=== PATIENT | female | born 1995 | race African-American/Black ===

== ENCOUNTER → 2020-12-15 14:50 | Outpatient (CLI) | payer BC, SELFPAY ==
[2020-12-15 15:29] LABS: Absolute Lymphocyte Count 1.94 X10^3/uL (0.83-4.51); Absolute Neutrophil Count 6.4 X10^3/uL (2.0-7.7); Basophil# 0.02 X10^3/uL; Basophil% 0.2 % (0-1); Eosinophil# 0.04 X10^3/uL; Eosinophils% 0.4 % (0-5); Hematocrit 34.3 % (37-47); Hemoglobin 11.4 g/dL (12.0-15.0); Lymphocyte # 1.94 X10^3/ul (0.83-4.51); Lymphocyte % 21.6 % (19-41); Mean Corp Hgb Conc 33.2 g/dL (32-36); Mean Corpuscular Hgb 29.4 pg (27.0-32.0); Mean Corpuscular Volume 88.4 fL (81-99); Mean Platelet Vol. 9.4 fl (6.2-12.0); Monocyte# 0.59 X10^3/uL; Monocyte% 6.6 % (0-10); NRBC Flagged by Analyzer 0 % (0-5); Neutrophil # 6.35 X10^3/uL (2.7-7.7); Neutrophil % 70.9 % (47-70); Platelet Count 282 K/mm3 (150-450); RBC Distribution Width CV 12.4 % (11.6-14.6); RBC Distribution Width SD 39.9 fl (35.1-43.9); Red Blood Count 3.88 M/mm3 (4.2-5.4)
[2020-12-15 15:58] LABS: Thyroid Stim Hormone (TSH) 0.14 uIU/mL (0.358-3.74)
[2020-12-15 16:17] LABS: Amphetamine Urine VISTA NEGATIVE (<1000 ng/mL); Barbiturate Urine VISTA NEGATIVE (< 200 ng/mL); Benzodiazepine Urine VISTA NEGATIVE (< 200 ng/mL); Cocaine Urine VISTA NEGATIVE (< 300 ng/mL); Ecstacy Urine VISTA NEGATIVE (< 500 ng/mL); Methadone Urine VISTA NEGATIVE (< 300 ng/mL); PCP Urine VISTA NEGATIVE (< 25 ng/mL); THC Urine VISTA NEGATIVE (< 50 ng/mL); Vista UDS pH Range 5
[2020-12-16 10:05] LABS: HIV - WCH Non-Reactive (Nonreactive); Hepatitis B Surface Antigen Non-Reactive (Nonreactive); Hepatitis C Antibody Non-Reactive (Nonreactive); Rubella IgG Reactive (Nonreactive); Syphilis Antibodies Non-reactive
[2020-12-18 03:06] LABS: Chlamydia By Nucleic Acid AMP Negative (Negative)
[2020-12-18 07:20] LABS: Gonococcus By Nucleic Acid AMP Negative (Negative)
== END ==
PROVIDERS: Referring Provider Obstetrics & Gynecology; Visit Provider Obstetrics & Gynecology
DX: O09.90 Supervision of high risk pregnancy, unspecified, unspecified trimester (principal); C73 Malignant neoplasm of thyroid gland; Z3A.00 Weeks of gestation of pregnancy not specified
CPT/HCPCS: 36415; 80307; 84443; 85025; 86703; 86762; 86780; 86803; 86850; 86900; 86901; 87077; 87086; 87186; 87340; 87491; 87591

== ENCOUNTER → 2020-12-22 16:36 | Outpatient (CLI) | payer BC, SELFPAY ==
[2020-12-22 17:59] LABS: Thyroid Stim Hormone (TSH) 0.28 uIU/mL (0.358-3.74)
== END ==
PROVIDERS: PCP Internal Medicine; Referring Provider Internal Medicine; Visit Provider Internal Medicine
DX: E03.9 Hypothyroidism, unspecified (principal)
CPT/HCPCS: 36415; 84443

== ENCOUNTER → 2020-12-31 18:28 | Outpatient (CLI) | payer BC, SELFPAY ==
--- NOTE | 2020-12-31 18:30 | US_ITS ---
STUDY: THYROID ULTRASOUND REASON FOR EXAM: Female, 25 years old. HX CA- s/p THYROIDECTOMY, HX BILATERAL LYMPH NODES TECHNIQUE: Ultrasound evaluation of the thyroid was performed with real-time and static snyder-scale imaging. COMPARISON: None. FINDINGS: Status post total thyroidectomy with no residual thyroid tissue.. The regional lymph nodes are normal. US/Thyroid IMPRESSION: Normal ultrasound examination of the neck after total thyroidectomy. Electronically Signed: Jaskaran López MD at 6:32 EDT Tel , Service support ,
== END ==
LOC: US 18:29
PROVIDERS: PCP Internal Medicine; Visit Provider Internal Medicine Endocrinology, Diabetes & Metabolism
DX: C73 Malignant neoplasm of thyroid gland (principal); E03.9 Hypothyroidism, unspecified
CPT/HCPCS: 76536

== ENCOUNTER → 2021-01-13 13:06 | Outpatient (CLI) | payer BC, SELFPAY | PROVIDERS: PCP Internal Medicine; Referring Provider Obstetrics & Gynecology; Visit Provider Obstetrics & Gynecology | DX: R30.9 Painful micturition, unspecified (principal) | CPT/HCPCS: 87086; 87088 ==

== ENCOUNTER 2021-01-14 10:16 | Day surgery (SDC) | payer BC, SELFPAY ==
[2021-01-14] VITALS (14 sets, daily range): BP systolic 85–118; BP diastolic 46–66; PULSE 63–81; RESP 16–18; TEMP 36.2–37.3; O2SAT 99–100; BMI 20.2
[2021-01-14 11:16] LABS: Absolute Neutrophil Count 4.7 X10^3/uL (2.0-7.7); Basophil# 0.01 X10^3/uL; Basophil% 0.2 % (0-1); Eosinophil# 0.03 X10^3/uL; Eosinophils% 0.5 % (0-5); Hematocrit 34.4 % (37-47); Hemoglobin 11.8 g/dL (12.0-15.0); Lymphocyte % 21.4 % (19-41); Mean Corp Hgb Conc 34.3 g/dL (32-36); Mean Corpuscular Hgb 29.9 pg (27.0-32.0); Mean Corpuscular Volume 87.1 fL (81-99); Mean Platelet Vol. 9.3 fl (6.2-12.0); Monocyte# 0.39 X10^3/uL; NRBC Flagged by Analyzer 0 % (0-5); Neutrophil # 4.68 X10^3/uL (2.7-7.7); Neutrophil % 71.6 % (47-70); Platelet Count 257 K/mm3 (150-450); RBC Distribution Width CV 12.4 % (11.6-14.6); RBC Distribution Width SD 39.6 fl (35.1-43.9); Red Blood Count 3.95 M/mm3 (4.2-5.4); White Blood Count 6.5 K/mm3 (4.4-11.0)
[2021-01-14] MEDS: Doxycycline 100 MG CAPSULE PO (11:23)
--- NOTE | 2021-01-14 12:00 | POC_PTH ---
PATIENT: TYRA RASHID [place] [facility] [place][id number] AGE/SX: 25/F ROOM: RE01/14/[address]: Dr. Tracee Bacon MD : 1995 BED: DIS: 01/14/2021 SPEC #: [id number] RECD: 01/14/21 13:06 STATUS: MARIANA REKennedi #: [id number] PARUL: 01/14/21 12:[address]: Tracee Bacon DEPT: SURGICAL PATHOLOGY RECD BY: Angela Solorzano ENTERED: 01/14/21 13:14 SP TYPE: PROD CONC OTHR DR: Dr. China Courtney MD Tissues: Product of conception, NOS Procedures: Surgery Specimen Level IV HEADER OPERATION: Suction D & C PRE-OP DIAGNOSIS: Missed TISSUE SUBMITTED: Products of conception (Anora) MICROSCOPIC DIAGNOSIS Endometrium, curettage: Chorionic villi, decidualized stroma and trophoblastic cells consistent with products of conception. AM:lukas 01/18/2021 MICROSCOPIC DESCRIPTION Slides are reviewed. GROSS DESCRIPTION Received in fixative is one container labeled with the patient's name and designated products of conception. The specimen consists of multiple irregular fragments of light salazar soft tissue that in aggregate measure 10 x 7 x 1.5 cm. Instructional Materials Director portions are submitted for Anora. No parts are recognized. Instructional Materials Director portions are submitted in cassette 1. / AM:lukas 01/17/21 TC:5 CPT: 00023
--- NOTE | 2021-01-14 12:14 | HP.PCM.OB_ITS ---
HPI - General HPI Narrative TYRA RASHID, is a 25 F who presents for suction D&C for missed Maternal Data Information STEFFI Calculator Estimated Delivery Date Method Current WG Current Estimate 08/03/21 LMP (Certain) 11w 2d Other Estimates 08/04/21 Ultrasound #1 11w 1d PFSH PFSH Medical History Cancer of head, face, or neck lymph nodes, secondary Family history of Down syndrome Hypothyroidism Supervision of high risk , antepartum Tachycardia Thyroid cancer Home Medications multivitamin no.47-iron fum 27 mg-folate no.1 1 mg-dha 300 mg capsule 1 cap PO DAILY 11/29/20 [History Last Taken Unknown] labetalol 100 mg tablet 50 mg PO DAILY #30 tab 12/09/20 [Rx Last Taken Unknown] promethazine 12.5 mg tablet 12.5 mg PO Q6H PRN #60 tab 12/15/20 [Rx Last Taken Unknown] levothyroxine 137 mcg tablet 137 mcg PO DAILY #60 tab 12/16/20 [Rx Last Taken Unknown] Allergy/AdvReac Type Severity Reaction Status Date / Time codeine AdvReac Severe Anaphylaxis Verified 01/14/21 11:05 Family History Grandmother Hypertension Surgical History H/O total thyroidectomy History of appendectomy History of radical neck dissection Social History household members: spouse housing: house current occupational status: employed current occupation: [employer] pets and animals: No Smoking Status: Never smoker second hand exposure: No alcohol intake: never substance use type: does not use seatbelt use: always do you feel safe at home: Yes additional social history: - [place] History 1 Elective abortions Hx Para Spontaneous abortions Hx # Term Pregnancies Ectopic pregnancies Hx # Pregnancies Multiple births # of living children Visit Details Expected Delivery Route/Plan Labor Preferences- CB/BF classes: [] labor support person: [] labor intervention preferences: [] pain management options preferred: [] cut cord/dad catch: [] : [] PP control planned: [] discussed possible routes of delivery and associated risks: [] special requests: [] Plans Covid status: [] Flu vaccine: [] Tdap vaccine: [] Rhogam: [] LARC form signed: [] Problem list reviewed and updated with the most current plan of care details and appropriate orders placed. Relevant counseling for the gestational age provided. Continue routine care and follow up unless otherwise noted in visit notes/problem list details OB Flowsheet Initial Weight: Not Recorded Date -?-?-?-?-?-?-?-?-?-?-?-?- EGA Weight BP Urine Prot -?-?-?-?-?-?-?-?-?-?-?-?- Glucose FHR FuHt Pres Dilation -?-?-?-?-?-?-?-?-?-?-?-?- Effaced St Visit Note 12/15/20 -?-?-?-?-?-?-?-?-?-?-?-?- 7w 0d 116 lb 120/66 -?-?-?-?-?-?-?-?-?-?-?-?- 145 -?-?-?-?-?-?-?-?-?-?-?-?- GP - CRL 9mm con sistent with LMP 01/13/21 -?-?-?-?-?-?-?-?-?-?-?-?- 11w 1d 117 lb 104/60 Negative -?-?-?-?-?-?-?-?-?-?-?-?- Negative -?-?-?-?-?-?-?-?-?-?-?-?- SM- no vb crampi ng, repeat urine culture SM- no vb cramping, repeat u rine culture. upon evaluation there is no fht present. 01/14/21 -?-?-?-?-?-?-?-?-?-?-?-?- 11w 2d 114 lb 6.719 oz 108/66 -?-?-?-?-?-?-?-?-?-?-?-?- -?-?-?-?-?-?-?-?-?-?-?-?- ROS Eyes Eyes: Reports systems reviewed and no addt'l complaints, except as documented ENT HEENT: Reports systems reviewed and no addt'l complaints, except as documented Cardiovascular Cardiovascular: Reports systems reviewed and no addt'l complaints, except as documented Respiratory/Chest Respiratory/Chest: Reports systems reviewed and no addt'l complaints, except as documented Gastrointestinal Gastrointestinal: Reports systems reviewed and no addt'l complaints, except as documented Genitourinary Genitourinary: Reports systems reviewed and no addt'l complaints, except as documented Musculoskeletal Musculoskeletal: Reports systems reviewed and no addt'l complaints, except as documented Integumentary Integumentary: Reports systems reviewed and no addt'l complaints, except as documented Neurologic Neurologic: Reports systems reviewed and no addt'l complaints, except as documented Psychiatric Psychiatric: Reports systems reviewed and no addt'l complaints, except as documented Endocrine Endocrinology: Reports systems reviewed and no addt'l complaints, except as documented Hematologic/Lymphatic Hematologic/Lymphatic: Reports systems reviewed and no addt'l complaints, except as documented Allergic/Immunologic Allergic/Immunologic: Reports systems reviewed and no addt'l complaints, except as documented Vital Signs Vital Signs Vital Signs: 01/14/21 10:50 Temperature 97.9 F Temperature Source Temporal Pulse Rate 80 Respiratory Rate 18 Respiratory Pattern Normal Blood Pressure 108/66 Blood Pressure Mean 80 Blood Pressure Source Monitor Blood Pressure Position Semi-Fowlers Blood Pressure Location Left Arm Pulse Ox 100 Oxygen Delivery Method Room Air Weight Weight: 114 lb 6.719 oz Body Mass Index (BMI) 20.2 Physical Exam Const alert, oriented x3, no apparent distress, average body habitus, healthy appearing and well nourished HEENT normocephalic and moist oral mucous membranes Head and Scalp: atraumatic Eyes PERRL and EOMs intact bilaterally Neck full ROM Resp normal respiratory effort, no retractions and no use of accessory muscles Cardio regular rate and regular rhythm GI soft to palpation, non-tender and non-distended Extremity normal to inspection and full ROM Skin no rashes or lesions noted Neuro no focal motor deficits and no sensory deficits noted Psych mental status grossly normal, affect normal, speech normal and activity/motor behavior normal Labs Labs Labs: Blood Type O POSITIVE Antibody Screen NEGATIVE Hct 34.4 % (37-47) L Hgb 11.8 g/dL (12.0-15.0) L Syphilis Total Ab Non-reactive Rubella IgG Antibody Reactive (Nonreactive) Hep Bs Antigen Non-Reactive (Nonreactive) Neisseria gonorrhoeae DNA (MILES) Negative (Negative) HIV 1&2 Antibody Non-Reactive (Nonreactive) Assessment & Plan (1) Missed : COMMENT: plan suction d and c. PLAN: Diagnosed on US yesterday Confirmed on US in PACU The nature of the procedure was described to the patient. The risks, benefits, indications, and alternatives to the procedure were discussed with the patient including bleeding, infection, and damage to surrounding structures. Discussed that risks are very low with D&C. Discussed the possibility of perforation and that this could require laparotomy or laparoscopy. Discussed the possibility of damage to surrounding structures including uterus, tubes, ovaries, bowel, or bladder. Understands the risk of hospitalization or reoperation. Voices understanding and agrees to proceed Plan genetic testing [facility] reviewed and no changes.
--- NOTE | 2021-01-14 12:25 | PCM.DC ---
Discharge Instructions Diet Discharge Diet: No restrictions Activity Discharge Activity: May Shower May resume sexual activity in: 1-2 weeks Dressing / Incision Call your doctor if your incision/area has: Continuous Slow Oozing, Sudden Increased Bleeding, Increased Pain/ Swelling and Foul Smelling Discharge Call your doctor if you observe: Fever of 101 or Higher, Inability to urinate, Using more than 1 pad per hour, Shortness of breath, Dizziness, Fainting spells, Chest pain and Uncontrolled pain Remove Dressing in: 1 week Cleanse incision/area with: Soap & Water Follow Up Care Please Follow Up With: Tracee Bacon MD When: 2 weeks Test Results: Test results from this visit will be discussed in further detail at your follow-up appointment, if applicable. Discharge Plan Admission Primary Reason for Your Visit: D&C Attending Provider: Tracee Bacon Primary Care Provider: China Courtney Discharge Orders/Prescriptions Prescriptions: New ibuprofen 800 mg tablet 800 mg PO Q8H PRN (Reason: pain) Qty: 60 RF: 1 Continued labetalol 100 mg tablet 50 mg PO DAILY Qty: 30 RF: 2 promethazine 12.5 mg tablet 12.5 mg PO Q6H PRN (Reason: nausea and vomiting) Qty: 60 RF: 2 PNV-DHA 27 mg iron-1 mg -300 mg capsule 1 cap PO DAILY RF: 0 levothyroxine 137 mcg tablet 137 mcg PO DAILY Qty: 60 RF: 1 Referrals / Follow Up: China Courtney MD [Primary Care Provider] - Disposition Disposition (needs filled in before D/C Order can be placed): Home, Self Care
--- NOTE | 2021-01-14 12:28 | PCM.OPRPT ---
Problems Associated Problem List Diagnoses (1) Missed : Report of Operation Date of Procedure: 01/14/21 Pre-Operative Diagnosis: Missed Post-Operative Diagnosis: same Surgery/Procedure Performed:: Suction D&C lithographic photographer: None Type of Anesthesia: MAC Estimated Blood Loss (mL): 25 Description of Procedure: The patient was taken to the operating room where anesthesia was obtained without difficulty. She was prepped and draped in the dorsal lithotomy position with yellofin stirrups. A weighted speculum was placed in the posterior aspect of the vagina and the anterior lip of the cervix was grasped with a ring forcep. The cervix was sequentially dilated to accommodate a #9 curved curette. The suction was activated and the products of conception were removed in an outward rotating movement. A gentle sharp curettage was then performed followed by an additional pass with the suction. The procedure was deemed complete. All instruments were removed from the vagina. The patient was awakened from anesthesia and taken to the recovery room in stable condition. Complications None Admit VTE Documentation VTE Present on Admission: No VTE Mechan Device Prophylaxis: None VTE Pharm Prophylaxis ordered?: No Procedures Urinary/Genital [id number]: [id number] Surg Trtmt missed Ab, 1TM
[2021-01-14] MEDS: Lidocaine 1% (30 ml sdv) 30 ML Vial (12:40)
[2021-01-14] MEDS: Lubricating Jelly 60 GM Tube 30 GM TOPICAL (12:40)
[2021-01-14] MEDS: Acetaminophen 500 MG Tablet 1000 MG PO (13:29)
[2021-01-24 09:01] LABS: Pathology Specimen OB SEE PATHOLOGY REPORT
== END 2021-01-14 16:00 | disposition home or self-care (01) ==
LOC: SDC 10:18 → AC 10:19
PROVIDERS: PCP Internal Medicine; Referring Provider Obstetrics & Gynecology; Visit Provider Obstetrics & Gynecology
PROC: (CPT 59820; principal; 2021-01-14 11:45)
DX: O02.1 Missed abortion (principal); Z3A.11 11 weeks gestation of pregnancy; E03.9 Hypothyroidism, unspecified; O99.281 Endocrine, nutritional and metabolic diseases complicating pregnancy, first trimester; Z79.890 Hormone replacement therapy; Z85.850 Personal history of malignant neoplasm of thyroid
CPT/HCPCS: 01965; 59820; 85025; 86850; 86900; 86901; 88305; J7120; J2405

== ENCOUNTER → 2021-01-21 14:49 | Outpatient (CLI) | payer BC, SELFPAY ==
[2021-01-21 16:55] LABS: hCG Titer Quant., Serum 248 mIU/mL (1-3)
[2021-01-21 17:03] LABS: Anion Gap 6 (5-15); BUN 8 mg/dL (7-18); BUN/Creat Ratio 12.7 RATIO (10-20); Calcium,Total 9.4 mg/dL (8.5-10.1); Chloride 106 mmol/L (98-107); Creatinine, Serum 0.63 mg/dL (0.55-1.02); EST Glomerular Filtration Rate 122 mL/min (>60); Est Glom Filt Rate - Afr Amer 148 mL/min (>60); Glucose 73 mg/dL (74-106); Magnesium 2.5 mg/dL (1.6-2.6); Potassium 3.6 mmol/L (3.5-5.1); Sodium Level 138 mmol/L (136-145); Thyroid Stim Hormone (TSH) 0.97 uIU/mL (0.358-3.74)
[2021-01-21 17:04] LABS: T4 Free Direct 1.19 ng/dL (0.76-1.46)
[2021-01-24 19:31] LABS: Anti-Thyroglobulin AB < 1.0 IU/mL (0.0-0.9); Thyroglobulin, Serum Qt. < 0.1 ng/mL (1.5-38.5)
== END ==
LOC: BIMLAB 14:49
PROVIDERS: Internal Medicine Endocrinology, Diabetes & Metabolism; PCP Internal Medicine; Referring Provider Internal Medicine; Visit Provider Internal Medicine
DX: O02.1 Missed abortion (principal); R00.2 Palpitations; C73 Malignant neoplasm of thyroid gland; E03.9 Hypothyroidism, unspecified; Z3A.00 Weeks of gestation of pregnancy not specified
CPT/HCPCS: 36415; 80048; 83735; 84432; 84439; 84443; 84702; 86800

== ENCOUNTER → 2021-01-27 08:30 | Outpatient (CLI) | payer BC, SELFPAY ==
[2021-01-29 04:07] LABS: Dilute Russell Viper Venom 34.5 sec (0.0-47.0); Thrombin Time 18.5 sec (0.0-23.0)
[2021-01-29 08:04] LABS: Anti-Cardiolipin Ab, IgA, Qn < 9 APL U/mL (0-11); Anti-Cardiolipin Ab, IgG, Qn < 9 GPL U/mL (0-14); Anti-Cardiolipin Ab, IgM, Qn < 9 MPL U/mL (0-12); Beta-2-Glycoprotein I IgA <9 (0-25); Beta-2-Glycoprotein I IgG <9 (0-20); Beta-2-Glycoprotein I IgM <9 (0-32); Dilute Prothrombin Time (dPT) 37.8 sec (0.0-55.0)
[2021-01-29 08:05] LABS: Interpretation Comment: (.); dPT Confirm Ratio 0.93 Ratio (0.00-1.40)
== END ==
LOC: PAVLAB 08:31
PROVIDERS: PCP Internal Medicine; Referring Provider Obstetrics & Gynecology; Visit Provider Obstetrics & Gynecology
DX: N96 Recurrent pregnancy loss (principal)
CPT/HCPCS: 36415; 86146; 86147

== ENCOUNTER → 2021-02-03 14:41 | Outpatient (CLI) | payer BC, SELFPAY ==
[2021-02-03 15:28] LABS: hCG Titer Quant., Serum 14 mIU/mL (1-3)
== END ==
PROVIDERS: PCP Internal Medicine; Referring Provider Nurse Practitioner Women's Health; Visit Provider Nurse Practitioner Women's Health
DX: O02.1 Missed abortion (principal); Z3A.00 Weeks of gestation of pregnancy not specified
CPT/HCPCS: 36415; 84702

== ENCOUNTER → 2021-03-07 15:41 | Outpatient (CLI) | payer BC, SELFPAY | PROVIDERS: PCP Internal Medicine; Referring Provider Internal Medicine Endocrinology, Diabetes & Metabolism; Visit Provider Internal Medicine Endocrinology, Diabetes & Metabolism | DX: E89.0 Postprocedural hypothyroidism (principal) | CPT/HCPCS: 36415; 84443 ==

== ENCOUNTER → 2021-03-28 17:22 | Outpatient (CLI) | payer BC, SELFPAY ==
--- NOTE | 2021-03-28 17:22 | MRI_ITS ---
EXAM: MR HEAD WITHOUT AND WITH INTRAVENOUS CONTRAST CLINICAL INDICATION: Arachnoid Cyst TECHNIQUE: Multiplanar and multisequence MR images of the brain were obtained without and with intravenous contrast. This report was created using [employer] report generation technology. CONTRAST: dotarem 10ml iv COMPARISON: None. FINDINGS: BRAIN AND EXTRA-AXIAL SPACES: Along the left temporal fossa, there is an arachnoid cyst. There is a T2 hyperintense region which is a arachnoid cyst. It is of low T1 signal. This is noted along the left temporal lobe. This is extra-axial and measures 20 x 10 x 17 mm. Series 5 image 9. Se 9 IM: 19. No intra- or extra-axial hemorrhage. No evidence of acute infarct. No intracranial mass or mass effect. There is preservation of the snyder/white matter interface. Posterior fossa structures are unremarkable. Ventricles are appropriate for age. No hydrocephalus. Basal cisterns are patent. SELLA: Unremarkable. Normal sella turcica, pituitary gland, infundibular stalk, optic chiasm and hypothalamus. AUDITORY SYSTEM: Unremarkable. The internal auditory canals are patent. BONES/JOINTS: Unremarkable. No discrete lytic or blastic abnormalities. SINUSES: Unremarkable as visualized. Clear. MASTOID AIR CELLS: Unremarkable as visualized. Clear. ORBITS: Unremarkable as visualized. Both globes, extraocular muscles, optic nerves and retrobulbar fat appear unremarkable. VASCULATURE: Unremarkable as visualized. Normal flow voids in the major intracranial circulation. OTHER FINDINGS: There are no enhancing lesions. MRI/Brain W/WO Contrast IMPRESSION: Along the left temporal fossa, there is an arachnoid cyst. Electronically Signed: Justin Garcia MD at 19:09 EST , Service support ,
== END ==
LOC: MRI 17:22
PROVIDERS: PCP Internal Medicine; Visit Provider Internal Medicine
DX: G93.0 Cerebral cysts (principal)
CPT/HCPCS: 70553; A9575

== ENCOUNTER → 2021-04-07 08:31 | Outpatient (CLI) | payer BC, SELFPAY ==
[2021-04-07 08:33] LABS: Bacteria 0 SEEN /hpf (None Seen); Mucous, Urine 0 SEEN /hpf (<or=2+); Red Blood Cells-Urine 0 SEEN /hpf (0-5); White Blood Cells 0 SEEN /hpf (0-5)
[2021-04-07 12:19] LABS: Color, Urine Yellow (Yellow); Glucose, Dipstick Normal (Normal); Ketone-Dipstick Negative (Negative); Leukocyte Esterase-Dipstick Negative /ul (Negative); Nitrite-Dipstick Negative (Negative); Occult Blood-Urine Negative /ul (Negative); Protein-Dipstick Negative (Negative); Urine Bilirubin Dipstick Negative (Negative); Urine Clarity Sl. Cloudy (Clear); Urine Urobilinogen Normal (Normal)
[2021-04-07 12:27] LABS: Squamous Epithelial Cells - UA 0-5 SEEN /hpf (5-10)
[2021-04-07 12:28] LABS: Internal QC Validated? YES +Cl - CLEAR BKGD; Pregnancy, Urine Negative Negative
== END ==
PROVIDERS: PCP Internal Medicine; Referring Provider Internal Medicine; Visit Provider Internal Medicine
DX: R10.9 Unspecified abdominal pain (principal); R35.0 Frequency of micturition; N39.0 Urinary tract infection, site not specified
CPT/HCPCS: 81001; 81025; 87086; 87088

== ENCOUNTER 2021-04-20 14:01 | Outpatient (CLI) | payer BC, SELFPAY ==
--- NOTE | 2021-04-20 14:03 | RAD_ITS ---
STUDY: X-RAY CHEST REASON FOR EXAM: Female, 26 years old, fever and cough TECHNIQUE: PA and lateral views of the chest. COMPARISON: None. FINDINGS: The lungs are clear and expanded. There is no demonstrated pleural abnormality. Normal size heart. Normal mediastinum and jane. Normal visualized pulmonary arteries. Normal visualized aortic arch and descending thoracic aorta. Normal visualized thoracic spine. Normal visualized ribs, clavicles, and shoulders. There is no demonstrated abnormality of the visualized soft tissue structures of the upper abdomen. RAD/Chest PA and Lateral IMPRESSION: Normal x-ray examination of the chest. Electronically Signed: Jordan Velasquez MD at 16:40 EST , Service support ,
== END 2021-04-20 23:59 | disposition short-term general hospital (02) ==
LOC: MTRAD 14:02
PROVIDERS: PCP Internal Medicine; Visit Provider Physician Assistant
DX: U07.1 COVID-19 (principal); R05.9 Cough, unspecified; R06.00 Dyspnea, unspecified
CPT/HCPCS: 71046

== ENCOUNTER 2021-05-12 15:35 | Outpatient (CLI) | payer BC, SELFPAY ==
[2021-05-12 16:49] LABS: T4 Free Direct 1.24 ng/dL (0.76-1.46); Thyroid Stim Hormone (TSH) 0.52 uIU/mL (0.358-3.74)
== END 2021-05-12 23:59 | disposition short-term general hospital (02) ==
LOC: PAVLAB 15:36
PROVIDERS: PCP Internal Medicine; Referring Provider Obstetrics & Gynecology; Visit Provider Obstetrics & Gynecology
DX: N89.8 Other specified noninflammatory disorders of vagina (principal); N93.9 Abnormal uterine and vaginal bleeding, unspecified
CPT/HCPCS: 36415; 84439; 84443; 87070; 87205

== ENCOUNTER 2021-05-20 18:25 | Emergency (ER) | payer BC, SELFPAY ==
[2021-05-20 18:26] VITALS: BP 121/81; PULSE 109; RESP 16; TEMP 36.6; O2SAT 100; BMI 20.3
[2021-05-20 18:35] VITALS: O2SAT 100
--- NOTE | 2021-05-20 18:35 | EKG12_ITS ---
Test Reason : PALPITATIONS Blood Pressure : / mmHG Vent. Rate : 095 BPM Atrial Rate : 095 BPM P-R Int : 136 ms QRS Dur : 076 ms QT Int : 338 ms P-R-T Axes : 058 051 031 degrees QTc Int : 424 ms Normal sinus rhythm Nonspecific T wave abnormality Abnormal ECG Confirmed by FLOWER POWELL, RONI ([id number]), material expeditor DEREK BYRD ([id number]) on 05/23/2021 10:03:25 AM Referred By: BONY PHYS Confirmed By:RONI CRENSHAW MD
--- NOTE | 2021-05-20 18:50 | RAD_ITS ---
STUDY: X-RAY CHEST REASON FOR EXAM: Female, 26 years old. PALPITATIONS. PAIN IN LEFT SIDE, RIBS, AND BACK . BILATERAL LEG CRAMPING. chest pain TECHNIQUE: XR Chest 1 View COMPARISON: 1.5 FINDINGS: There is no demonstrated pleural abnormality. Normal size heart. Normal mediastinum and jane. Normal visualized pulmonary arteries. Normal visualized aortic arch and descending thoracic aorta. Normal visualized thoracic spine. Normal visualized ribs, clavicles, and shoulders. There is no demonstrated abnormality of the visualized soft tissue structures of the upper abdomen. RAD/Chest 1 View (Portable) IMPRESSION: There are no acute findings. Electronically Signed: Justin Garcia MD at 19:06 EST ,
[2021-05-20 18:58] LABS: Absolute Lymphocyte Count 0.47 X10^3/uL (0.83-4.51); Absolute Neutrophil Count 4.2 X10^3/uL (2.0-7.7); Basophil# 0.01 X10^3/uL; Basophil% 0.2 % (0-1); Eosinophil# 0.01 X10^3/uL; Eosinophils% 0.2 % (0-5); Hematocrit 37.1 % (37-47); Hemoglobin 12.6 g/dL (12.0-15.0); Lymphocyte # 0.47 X10^3/ul (0.83-4.51); Lymphocyte % 8.7 % (19-41); Mean Corpuscular Hgb 29.3 pg (27.0-32.0); Mean Corpuscular Volume 86.3 fL (81-99); Mean Platelet Vol. 9.4 fl (6.2-12.0); Monocyte# 0.72 X10^3/uL; Monocyte% 13.4 % (0-10); NRBC Flagged by Analyzer 0 % (0-5); Neutrophil # 4.16 X10^3/uL (2.7-7.7); Neutrophil % 77.3 % (47-70); POSITIVE DIFFERENTIAL YES; Platelet Count 252 K/mm3 (150-450); RBC Distribution Width CV 12.7 % (11.6-14.6); RBC Distribution Width SD 40.3 fl (35.1-43.9); White Blood Count 5.4 K/mm3 (4.4-11.0)
[2021-05-20 19:01] LABS: Differential Indicated SCAN CRITERIA MET
[2021-05-20 19:13] LABS: D-Dimer Quantitative (DVT/PE) < 0.27 FEU/ug/m (0.27-0.49)
[2021-05-20 19:16] LABS: Anion Gap 4 (5-15); BUN 9 mg/dL (7-18); Calcium,Total 8.8 mg/dL (8.5-10.1); Chloride 107 mmol/L (98-107); Creatinine, Serum 0.64 mg/dL (0.55-1.02); EST Glomerular Filtration Rate 119 mL/min (>60); Est Glom Filt Rate - Afr Amer 144 mL/min (>60); Estimated Creatinine Clearance 110.65 ml/min; Glucose 89 mg/dL (74-106); Potassium 3.6 mmol/L (3.5-5.1); Sodium Level 138 mmol/L (136-145); Troponin-I HS < 3 pg/mL (3.0-54.0)
[2021-05-20 19:26] LABS: Differential Comment SCANNED
[2021-05-20 19:40] VITALS: PULSE 99
--- NOTE | 2021-05-20 20:03 | EDS_ITS ---
HPI History of Present Illness Chief Complaint: Palpitations Narrative Narrative: 26-year-old female with history of SVT and hypothyroidism presenting with left-sided rib pain which is nontraumatic since last evening. She states she had some palpitations with this as well. Patient recently had COVID-19 in April states she recovered well. She denies fever, chills, cough currently. She does not feel short of breath. She was previously on control but is no longer on this. No history of DVT/PE. No risk factors. Other than SVT she has no cardiac issues. PFSH PFS Medical History Abdominal pain Acute bronchitis, unspecified Acute pharyngitis Arachnoid cyst Cancer of head, face, or neck lymph nodes, secondary Difficulty swallowing Family history of Down syndrome GERD (gastroesophageal reflux disease) Hypothyroidism Missed Palpitations Pharyngitis Supervision of high risk , antepartum Tachycardia Thyroid cancer Urinary frequency UTI (urinary tract infection) Home Medications labetalol 100 mg tablet 50 mg PO DAILY #30 tab 01/25/21 [Rx Last Taken Unknown] levothyroxine 137 mcg tablet 137 mcg PO DAILY #30 tab 01/25/21 [Rx Last Taken Unknown] Allergy/AdvReac Type Severity Reaction Status Date / Time codeine AdvReac Severe Anaphylaxis Verified 05/20/21 18:28 Family History Grandmother Hypertension Surgical History H/O dilation and curettage H/O total thyroidectomy History of appendectomy History of radical neck dissection Social History household members: spouse housing: house current occupational status: employed current occupation: [employer] pets and animals: No Smoking Status: Never smoker second hand exposure: No alcohol intake: never substance use type: does not use seatbelt use: always do you feel safe at home: Yes additional social history: - [place] TOSIN LEAHY ED Constitutional Constitutional ED: Denies chills or fever(s) Eyes Eyes: Denies blurry vision or change in vision ENT ENT ED: Denies rhinorrhea or sore throat Cardiovascular Cardiovascular: Reports as per HPI and palpitations Respiratory/Chest Respiratory/Chest: Denies cough or dyspnea Gastrointestinal Gastrointestinal: Denies abdominal pain, nausea or vomiting Genitourinary Genitourinary ED: Denies dysuria or hematuria Musculoskeletal Musculoskeletal: Denies myalgias Integumentary Denies abscess or rash Neurologic Neurologic: Denies headache(s), paresthesias or weakness EXAM Physical Exam Const Vital Signs: 05/20/21 18:26 05/20/21 18:35 05/20/21 19:40 Temperature 97.8 F Temperature Source Temporal Pulse Rate 109 H 99 Respiratory Rate 16 Blood Pressure 121/81 H Blood Pressure Mean 94 Pulse Ox 100 100 Oxygen Delivery Method Room Air Room Air Positive well nourished and well developed General Appearance ED: well developed and NAD; Negative for pallor HEENT normocephalic and atraumatic Eyes PERRL and EOMs intact bilaterally Neck no lymphadenopathy and supple Chest Wall Chest Narrative: Tenderness to palpation left ribs inferior to the axilla approximately ribs 3 and 4 in the midaxillary line without crepitance or step- off. Equal symmetric breath sounds or chest wall rise. Resp normal respiratory effort and clear to auscultation bilaterally Cardio regular rate Rate: tachycardic Neuro oriented x3 and CN's II-XII intact bilaterally Sensorium / Orientation: awake and alert Motor Exam: strength 5/5 throughout Psych mental status grossly normal Skin General Skin Exam: Negative for jaundice or pallor Heart Score History: Slightly/Non-Suspicious ECG: Normal Age: </= 45 years Risk Factors: No Risk Factors Troponin: </= Normal Limit Score: 0 MDM MDM MDM Narrative Medical decision making narrative: Patient presented with left-sided rib pain. I have low suspicion for ACS but I did obtain an EKG which on my interpretation shows a normal sinus rhythm with ventricular rate of 95 bpm without sign of ischemic change. Chest x-ray on my interpretation shows no acute cardiopulmonary process and radiologist does agree. High-sensitivity troponin is less than 3 and she has had this pain since last evening and I believe this rules her out for ACS especially since she has no risk factors and is low suspicion for ACS. D-dimer is less than 0.27 therefore I have low suspicion for PE. CBC and BMP are unremarkable. Given patient's negative work-up I feel she is safe to be discharged home. I offered her Lidoderm patches for the area and counseled her alternate ibuprofen and Tylenol for pain. She does not want Lidoderm patches. She states he does have muscle relaxers at home and she can try these. She is given return precautions. She discharged home in stable condition. Impression: 1. Left rib pain 2. Palpitations Lab Data Labs: Laboratory Results - last 24 hr 05/20/21 05/20/21 05/20/21 18:47 18:47 18:47 WBC 5.4 RBC 4.30 Hgb 12.6 Hct 37.1 MCV 86.3 MCH 29.3 MCHC 34.0 RDW Std Deviation 40.3 RDW Coeff of Macy 12.7 Plt Count 252 MPV 9.4 Immature Gran % (Auto) 0.200 Neut % (Auto) 77.3 H Lymph % (Auto) 8.7 L [place] % (Auto) 13.4 H Eos % (Auto) 0.2 Baso % (Auto) 0.2 Absolute Neuts (auto) 4.2 Absolute Lymphs (auto) 0.47 L Nucleated RBC % 0 Differential Comment SCANNED D-Dimer Quant (PE/DVT) < 0.27 L Sodium 138 Potassium 3.6 Chloride 107 Carbon Dioxide 27.0 Anion Gap 4 L BUN 9 Creatinine 0.64 Estim Creat Clear Calc 110.65 Est GFR (MDRD) Af Amer 144 Est GFR (MDRD) Non-Af 119 BUN/Creatinine Ratio 14.0 Glucose 89 Calcium 8.8 Troponin I High Sens < 3 L Radiography Diagnostic Testing: Clinical Impression(s) from Imaging Studies Chest X-Ray 05/20/21 18:50 IMPRESSION: There are no acute findings. Electronically Signed: Justin Garcia MD at 19:06 EST Reading Location ID and State: [facility] / [place] , Service support , Discharge Plan Triage Chief Complaint: Palpitations ED Provider: Que Basilio Dx/Rx/DC Orders Instructions: ED Chest Pain, Noncardiac, ED Palpitations Prescriptions: No Action labetalol 100 mg tablet 50 mg PO DAILY Qty: 30 RF: 2 levothyroxine 137 mcg tablet 137 mcg PO DAILY Qty: 30 RF: 2 Primary Care Provider: China Courtney Referrals: China Courtney MD [Primary Care Provider] - Disposition Disposition: Home, Self Care Discharge Date/Time: 05/20/21 19:40
== END 2021-05-20 19:40 | disposition home or self-care (01) ==
PROVIDERS: Emergency Provider Student in an Organized Health Care Education/Training Program; PCP Internal Medicine; Visit Provider Student in an Organized Health Care Education/Training Program
DX: R07.81 Pleurodynia (principal); R00.2 Palpitations; E03.9 Hypothyroidism, unspecified; Z86.16 Personal history of COVID-19; Z79.899 Other long term (current) drug therapy
CPT/HCPCS: 71045; 80048; 84484; 85025; 85379; 93005; 99284; A4216

== ENCOUNTER 2021-05-24 18:33 | Outpatient (CLI) | payer BC, SELFPAY ==
--- NOTE | 2021-05-24 18:38 | US_ITS ---
STUDY: ULTRASOUND OF THE FEMALE PELVIS - COMPLETE REASON FOR EXAM: Female, 26 years old. AUB TECHNIQUE: Transabdominal COMPARISON: None. FINDINGS: The uterus is anteverted and is in a midline position. The uterus measures 6.8 x 5.7 cm. There is a Nabothian cyst of the cervix. The endometrium measures 9 mm in thickness, and is hyperechoic. There is no demonstrated endometrial mass. There is no demonstrated myometrial mass. I.U.D. - The patient does not have an I.U.D. The right ovary is visualized. The right ovary measures 3.6 x 2.5 cm. Cyst measures 12 x 16 mm. No follow-up required. There is no visualized right adnexal mass or complex lesion. There is normal arterial and normal venous vascularity. The left ovary is visualized. The left ovary measures 2.2 x 1.7 cm. There is no left ovarian cyst or ovarian mass. There is no visualized left adnexal mass or complex lesion. There is normal arterial and normal venous vascularity. There is no fluid in the cul-de-sac. US/Pelvic (Non ) IMPRESSION: There is a Nabothian cyst of the cervix. Electronically Signed: Justin Garcia MD at 19:26 EST ,
--- NOTE | 2021-05-24 18:50 | US_ITS ---
STUDY: ULTRASOUND OF THE FEMALE PELVIS - COMPLETE REASON FOR EXAM: Female, 26 years old. AUB TECHNIQUE: Transabdominal COMPARISON: None. FINDINGS: The uterus is anteverted and is in a midline position. The uterus measures 6.8 x 5.7 cm. There is a Nabothian cyst of the cervix. The endometrium measures 9 mm in thickness, and is hyperechoic. There is no demonstrated endometrial mass. There is no demonstrated myometrial mass. I.U.D. - The patient does not have an I.U.D. The right ovary is visualized. The right ovary measures 3.6 x 2.5 cm. Cyst measures 12 x 16 mm. No follow-up required. There is no visualized right adnexal mass or complex lesion. There is normal arterial and normal venous vascularity. The left ovary is visualized. The left ovary measures 2.2 x 1.7 cm. There is no left ovarian cyst or ovarian mass. There is no visualized left adnexal mass or complex lesion. There is normal arterial and normal venous vascularity. There is no fluid in the cul-de-sac. US/Transvaginal Non- IMPRESSION: There is a Nabothian cyst of the cervix. Electronically Signed: Justin Garcia MD at 19:26 EST ,
== END 2021-05-24 23:59 | disposition home or self-care (01) ==
PROVIDERS: PCP Internal Medicine; Visit Provider Obstetrics & Gynecology
DX: N93.9 Abnormal uterine and vaginal bleeding, unspecified (principal)
CPT/HCPCS: 76830; 76856

== ENCOUNTER 2021-06-06 15:20 | Outpatient (CLI) | payer BC, SELFPAY ==
[2021-06-06 15:25] LABS: Bacteria 0 SEEN /hpf (None Seen); Mucous, Urine 0 SEEN /hpf (<or=2+); Red Blood Cells-Urine 0 SEEN /hpf (0-5); White Blood Cells 0 SEEN /hpf (0-5)
[2021-06-06 16:55] LABS: Color, Urine Yellow (Yellow); Glucose, Dipstick Normal (Normal); Ketone-Dipstick Negative (Negative); Leukocyte Esterase-Dipstick Negative /ul (Negative); Nitrite-Dipstick Negative (Negative); Occult Blood-Urine Negative /ul (Negative); Protein-Dipstick Negative (Negative); Urine Bilirubin Dipstick Negative (Negative); Urine Clarity Sl. Cloudy (Clear); Urine Urobilinogen Normal (Normal)
[2021-06-06 16:58] LABS: hCG Titer Quant., Serum 44 mIU/mL (1-3)
[2021-06-06 17:04] LABS: Squamous Epithelial Cells - UA 5-10 SEEN /hpf (5-10)
[2021-06-06 17:08] LABS: T4 Free Direct 1.25 ng/dL (0.76-1.46)
[2021-06-08 18:12] LABS: Anti-Thyroglobulin AB < 1.0 IU/mL (0.0-0.9); Thyroglobulin, Serum Qt. < 0.1 ng/mL (1.5-38.5)
== END 2021-06-06 23:59 | disposition home or self-care (01) ==
LOC: BIMLAB 15:20
PROVIDERS: Internal Medicine Endocrinology, Diabetes & Metabolism; Obstetrics & Gynecology; PCP Internal Medicine; Visit Provider Internal Medicine
DX: E89.0 Postprocedural hypothyroidism (principal); C73 Malignant neoplasm of thyroid gland; N91.2 Amenorrhea, unspecified; R35.0 Frequency of micturition
CPT/HCPCS: 36415; 81001; 84432; 84439; 84443; 84481; 84702; 86800

== ENCOUNTER 2021-06-08 13:20 | Outpatient (CLI) | payer BC, SELFPAY ==
[2021-06-08 14:08] LABS: hCG Titer Quant., Serum 131 mIU/mL (1-3)
== END 2021-06-08 23:59 | disposition home or self-care (01) ==
LOC: PAVLAB 13:21
PROVIDERS: PCP Internal Medicine; Referring Provider Obstetrics & Gynecology; Visit Provider Obstetrics & Gynecology
DX: N91.2 Amenorrhea, unspecified (principal)
CPT/HCPCS: 36415; 84702

== ENCOUNTER 2021-06-13 13:24 | Outpatient (CLI) | payer BC, SELFPAY ==
[2021-06-13 16:00] LABS: hCG Titer Quant., Serum 734 mIU/mL (1-3)
== END 2021-06-13 23:59 | disposition home or self-care (01) ==
LOC: MTLAB 13:25
PROVIDERS: PCP Internal Medicine; Referring Provider Obstetrics & Gynecology; Visit Provider Obstetrics & Gynecology
DX: O20.0 Threatened abortion (principal); Z3A.00 Weeks of gestation of pregnancy not specified
CPT/HCPCS: 36415; 84702

== ENCOUNTER 2021-06-28 10:57 | Outpatient (CLI) | payer BC, SELFPAY ==
[2021-06-28 11:22] LABS: Absolute Lymphocyte Count 1.53 X10^3/uL (0.83-4.51); Absolute Neutrophil Count 5.1 X10^3/uL (2.0-7.7); Basophil# 0.02 X10^3/uL; Basophil% 0.3 % (0-1); Eosinophil# 0.03 X10^3/uL; Eosinophils% 0.4 % (0-5); Hematocrit 36.5 % (37-47); Hemoglobin 12.5 g/dL (12.0-15.0); Lymphocyte # 1.53 X10^3/ul (0.83-4.51); Lymphocyte % 21.5 % (19-41); Mean Corp Hgb Conc 34.2 g/dL (32-36); Mean Corpuscular Hgb 30.1 pg (27.0-32.0); Mean Platelet Vol. 9.3 fl (6.2-12.0); Monocyte# 0.43 X10^3/uL; NRBC Flagged by Analyzer 0 % (0-5); Neutrophil # 5.06 X10^3/uL (2.7-7.7); Neutrophil % 71.2 % (47-70); Platelet Count 281 K/mm3 (150-450); RBC Distribution Width CV 13.2 % (11.6-14.6); RBC Distribution Width SD 43.1 fl (35.1-43.9); Red Blood Count 4.15 M/mm3 (4.2-5.4); White Blood Count 7.1 K/mm3 (4.4-11.0)
[2021-06-28 11:38] LABS: Amphetamine Urine VISTA NEGATIVE (<1000 ng/mL); Barbiturate Urine VISTA NEGATIVE (< 200 ng/mL); Benzodiazepine Urine VISTA NEGATIVE (< 200 ng/mL); Cocaine Urine VISTA NEGATIVE (< 300 ng/mL); Ecstacy Urine VISTA POSITIVE (< 500 ng/mL); Methadone Urine VISTA NEGATIVE (< 300 ng/mL); PCP Urine VISTA NEGATIVE (< 25 ng/mL); THC Urine VISTA NEGATIVE (< 50 ng/mL); Vista UDS pH Range 5
[2021-06-28 12:09] LABS: Free T3 2.5 pg/mL (2.18-3.98); T4 Free Direct 1.19 ng/dL (0.76-1.46); Thyroid Stim Hormone (TSH) 1.02 uIU/mL (0.358-3.74)
[2021-06-28 12:48] LABS: HIV - WCH Non-Reactive (Nonreactive); Hepatitis B Surface Antigen Non-Reactive (Nonreactive); Hepatitis C Antibody Non-Reactive (Nonreactive); Rubella IgG Reactive (Nonreactive); Syphilis Antibodies Non-reactive
[2021-06-29 21:07] LABS: Chlamydia By Nucleic Acid AMP Negative (Negative)
[2021-06-29 21:21] LABS: Gonococcus By Nucleic Acid AMP Negative (Negative)
[2021-07-02 19:28] LABS: HPV Reflexed? NOT INDICATED
== END 2021-06-28 23:59 | disposition home or self-care (01) ==
PROVIDERS: PCP Internal Medicine; Referring Provider Obstetrics & Gynecology; Visit Provider Obstetrics & Gynecology
DX: O09.90 Supervision of high risk pregnancy, unspecified, unspecified trimester (principal); Z3A.00 Weeks of gestation of pregnancy not specified
CPT/HCPCS: 36415; 80307; 84439; 84443; 84481; 85025; 86703; 86762; 86780; 86803; 86850; 86900; 86901; 87077; 87086; 87088; 87186; 87340; 87491; 87591; 88175; G0145